=== PATIENT | female | born 1940 | race Caucasian/White ===

== ENCOUNTER 2018-07-15 06:32 | Inpatient (IN) ==
--- NOTE | 2018-06-24 18:23 | History & Physical Report ---
Date of Service June 24, 2018 Date of Surgery: 07-15-18 Assessment & Plan (1) Primary localized osteoarthritis of right knee: All risks and benefits of the procedure have been discussed, at this point in time Niya has failed conservative measures and would like to proceed with a Right total knee replacement to be performed by Dr Grant at [facility]. Plan on discharge will be home with home health physical therapy. DVT prophalaxis with TEDs, SCDs and will also place on aspirin 81 mg p.o. b.i.d. for a month postop. Patient will have follow up appointment in our office two weeks post op for staple removal and re-evaluation. Patient otherwise has no other questions or concerns. History of Present Illness Chief Complaint: right knee pain Primary Care Provider: Cuate Vitale Ms Webb is a 77 year old female who complains of right knee pain, presents for pre-op evaluation prior to a right total knee replacement on 07-15-18 at [facility]. She presents with pain, crepitus and decreased rom on the right side. She states that the symptoms have been chronic non-traumatic. The symptoms occur constantly with intermittent worsening. Currently the patient states that the symptoms are moderate. The pain is described as aching and throbbing. The symptoms are aggravated by ascending stairs, first steps while awake, daily activities, descending stairs and walking. Niya states that the symptoms are relieved by no specific activity. In addition to right knee pain the patient is also experiencing decreased mobility, joint pain, limping and loss of motion. Patient has had previous corticosteroid injection with little to no relief. She has also used a brace in the past. at this point, she has failed conservative measures and would like to proceed with a Right total knee replacement. Allergies Allergy/AdvReac Type Severity Reaction Status Date / Time No Known Allergies Allergy Verified 06/15/18 10:22 Home Medications Home Medications Medication Instructions Recorded Confirmed Type adalimumab [Humira] 1 dose SUBCUT UD 06/15/18 06/15/18 History calcium carbonate-vitamin D3 2 tab PO QAM 06/15/18 06/15/18 History [Caltrate 600 + D] cyanocobalamin (vitamin B-12) 1,000 mcg PO QAM 06/15/18 06/15/18 History [Vitamin B-12] folic acid 1 mg PO QAM 06/15/18 06/15/18 History meclizine 12.5 mg PO TID PRN 06/15/18 06/15/18 History raloxifene [Evista] 60 mg PO QAM 06/15/18 06/15/18 History Past Med/Surg History Medical History History of colon cancer 2013 Osteoarthritis Vertigo MECLIZINE PRN Surgical History History of bowel resection 2013 History of section X4 History of cholecystectomy History of colonoscopy History of herniorrhaphy History of surgery TOE PROCEDURE Family History Father Hypertension Stroke Social History Current Living Situation: Spouse Other Information That Helps Us Care for You: No Feels Safe at Home: Yes Safety Concerns: Feels Safe At This Time Smoking Status: Never smoker Do You Dip or Chew Tobacco: No Second Hand Exposure: No Tobacco Cessation Education Requested by Patient: No Hx Alcohol Use: No Hx Substance Use: No Beliefs That Will Affect Care: None Preferred Language: [place] Communication Ability: Effective 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 Review of Systems All systems reviewed & are unremarkable except as noted in HPI & below Constitutional: no fever, no chills and no sweats Respiratory: no cough and no dyspnea Cardiovascular: no chest pain, no dyspnea and no orthopnea Gastrointestinal: no abdominal pain, no nausea and no vomiting Integumentary: no rash and no lesions Physical Exam 2 Vital Signs (Past 24 Hours): Ht: 5ft 2 inches Wt: 71.7kg BP: 130/78 Pulse: 68 Resp: 16 Constitutional: WD/WN, vitals as above no acute distress Respiratory: normal respiratory effort, lungs clear to auscultation no respiratory distress and does not use accessory muscles Cardiovascular: RRR, no murmur, no edema Gastrointestinal (Abdomen): normal bowel sounds, soft, nontender, no hepatosplenomegaly Musculoskeletal: Right Knee Exam: She ambulates with a limp, overall neutral alignment, there is no erythema, warmth or atrophy, +1 Effusion, diffuse tenderness to the knee, greatest over her anterior knee joint and lateral compartment. negative patellar Apprehension , mild Crepitation with motion, Jass's Negative, flexion circumduction test is positive, Posterior drawer- Negative, Anterior drawer Negative, Valgus stress Negative, Varus stress Negative, there is no extensor lag noted, Pain with Active range of motion. Range of motion 0/3/115. No pain with active/passive ROM of ankle. Lower Extremity Strength normal. Lower Extremity Neuro-vascular is normal Skin: no rashes, warm and dry Results & Data Diagnostic Findings Right knee x-ray: dated 06-09-18 confirm degenerative changes to her right knee, overall leg length demonstrates valgus alignment. findings consistent with joint space narrowing and osteophyte formation. no loose bodies noted no acute bony pathology.
--- NOTE | 2018-06-26 12:40 | Anesthesiology Consultation ---
Date of Service June 26, 2018 Assessment & Plan (1) Encounter for pre-operative examination: Plan: Patient initially seen by PCP on 07/06 for clearance. Started on amlodipine 5 mg daily for hypertension and had repeat chest x-ray. PCP clearance 07/08/2018: Chest x-ray, EKG, labs reviewed�all stable...Hypertension much better controlled with the amlodipine. Medically stable and cleared for elective right knee surgery 07/15/2018. Chart Review Chart Review: Acceptable Risk for Surgery and Patient seen in Pre Admission Testing Teaching & Discussion Instructed NPO after midnight before surgery, except medications with 15 cc of water. Medication instructions provided according to the PAT guidelines. History Surgery Operation Date: 07/15/18 07:00 Proposed Procedures p Right Total Knee Arthroplasty - Fernando Grant DO Height/Weight Height: 5 ft 2 in Weight: 72.7 kg Allergies Allergy/AdvReac Type Severity Reaction Status Date / Time No Known Allergies Allergy Verified 06/15/18 10:22 Medications Home Medications Medication Instructions Recorded Confirmed Last Taken adalimumab [Humira] 1 dose SUBCUT UD 06/15/18 06/15/18 Unknown calcium carbonate-vitamin D3 2 tab PO QAM 06/15/18 06/15/18 Unknown [Caltrate 600 + D] cyanocobalamin (vitamin B-12) 1,000 mcg PO QAM 06/15/18 06/15/18 Unknown [Vitamin B-12] folic acid 1 mg PO QAM 06/15/18 06/15/18 Unknown meclizine 12.5 mg PO TID PRN 06/15/18 06/15/18 Unknown raloxifene [Evista] 60 mg PO QAM 06/15/18 06/15/18 Unknown Past Medical History Medical History History of colon cancer 2013 Osteoarthritis Rheumatoid arthritis Vertigo MECLIZINE PRN Past Family History Family History Father Hypertension Stroke Past Surgical History Surgical History History of bowel resection 2013 History of section X4 History of cholecystectomy History of colonoscopy History of herniorrhaphy History of surgery TOE PROCEDURE Past Anesthesia History No Family Hx of Anesthesia Complications and Other History of PONV Yes (vertigo exacerbated by anesthesia) Social History Smoking Status: Never smoker Do You Dip or Chew Tobacco: No Hx Alcohol Use: No Alcohol Intake Frequency Comment: 0 Hx Substance Use: No substance use type: does not use Exercise / Class Metabolic Activity II 4-5 Yardwork/Stairs/Walk up hill (limited these days by pain, but no SOB or CP with stairs) Review of Systems Pt denies any recent chest pain, shortness of breath, palpitations, cough, fever or URI. Physical Exam Vital Signs BP: 138/78 P: 77bpm SPO2: 94% RA T: 97.4 F R: 16 ENMT Mouth: + dental restorations (crowns on front uppers); no chipped teeth and no loose teeth Thyromental Distance: > or= 3.5 Finger Breadths (3.5) Mallampati Class: II Neck + thick neck; neck extension not limited Respiratory normal respiratory effort Auscultation: lungs clear to auscultation bilaterally Cardiovascular Rate/Rhythm: regular rate and regular rhythm Heart Sounds: no murmur Vessels: no carotid bruit Extremities: no edema Testing Electrocardiogram Date: 06/26/18 Findings: + NSR @ (76) Cannot r/o inferior infarct, age undetermined. Chest X-Ray Date: 06/26/18 Atelectasis versus patchy parenchymal infiltrate left lung base. *lungs clear on exam and pt denied any respiratory symptoms. Will be seeing PCP for clearance 07/02. Cervical Spine Date: 06/26/18 FINDINGS: The cervical spine is visualized from C1 through the superior endplate of T1. There is no fracture. Less than 2 mm of anterolisthesis of C4 on C5 and C5 on C6. This remains unchanged throughout flexion and extension. Moderate facet degenerative changes throughout the cervical spine. Mild disc space narrowing at C6-C7. Prevertebral soft tissues and the atlantodens interval are intact. IMPRESSION: 1. Mild anterolisthesis of C4 on C5 and C5 on C6 which remains unchanged throughout flexion and extension. 2. The C1-C2 interval remains intact throughout flexion and extension. 3. Degenerative changes as described above. Laboratory Results 06/26/18 13:12 Blood Type AB Positive 06/26/18 13:12 Antibody Screen NEGATIVE 06/26/18 13:12 PT 11.2 Seconds (9.0-12.0) 06/26/18 13:12 INR 1.1 (0.9-1.1) 06/26/18 13:12 APTT 25.7 Seconds (21.0-31.0) 06/26/18 13:12 Hemoglobin A1c 5.5 % (4.5-5.6) 06/26/18 13:12 Urine Color Yellow 06/26/18 13:12 Urine Appearance Clear (Clear) 06/26/18 13:12 Urine pH 5.5 (4.5-7.5) 06/26/18 13:12 Ur Specific [place] 1.013 (1.000-1.030) 06/26/18 13:12 Urine Protein Negative (Negative) 06/26/18 13:12 Urine Glucose (UA) Negative (Negative) 06/26/18 13:12 Urine Ketones Trace (Negative) H 06/26/18 13:12 Urine Nitrite Negative (Negative) 06/26/18 13:12 Ur Leukocyte Esterase 1+ (Negative) H 06/26/18 13:12 Urine WBC (Auto) 10-30 /hpf (0-5) H 06/26/18 13:12 Urine RBC (Auto) 0-4 /hpf (0-4) 06/26/18 13:12 U Hyaline Cast (Auto) 1-5 /lpf (0-5) 06/26/18 13:12 U Epithel Cells (Auto) 20-30 /lpf (0-5) H 06/26/18 13:12 Urine Bacteria (Auto) Negative (Negative) 06/26/18 13:12 06/26/18 13:12 Urine Culture - Final Urine,Clean Catch Three types of organisms present, all high counts. Repeat collection recommended. No further identifications or sensitivities to follow. 06/11/2018 SODIUM: 141 POTASSIUM: 4.3 CHLORIDE: 106 CO2: 28.7 BUN: 14.9 CREATININE: 0.70 GLUCOSE: 85
--- NOTE | 2018-06-26 12:42 | PAT Medication Instructions ---
Medication Instructions Date of Service June 26, 2018 Home Medications adalimumab [Humira] 1 dose SUBCUT UD calcium carbonate-vitamin D3 2 tab PO QAM cyanocobalamin (vitamin B-12) 1,000 mcg PO QAM folic acid 1 mg PO QAM meclizine 12.5 mg PO TID PRN raloxifene [Evista] 60 mg PO QAM ASK your prescriber and surgeon adalimumab [Humira] 1 dose SUBCUT UD DO NOT take the morning of surgery calcium carbonate-vitamin D3 2 tab PO QAM cyanocobalamin (vitamin B-12) 1,000 mcg PO QAM folic acid 1 mg PO QAM raloxifene [Evista] 60 mg PO QAM Take morning of surgery With a small sip of water, OTHERWISE NOTHING TO EAT OR DRINK AFTER MIDNIGHT: meclizine 12.5 mg PO TID PRN (if needed) Take evening before surgery meclizine 12.5 mg PO TID PRN (if needed) Other Notes If you have any questions please call us at [phone] or [phone] or [phone] or [phone]
--- NOTE | 2018-06-26 13:50 | XRay Report ---
XR chest Pre-admission PA/Lat CLINICAL HISTORY: pat preoperative evaluation COMPARISON STUDY: No previous studies for comparison. FINDINGS: Small parenchymal infiltrate left lung base. Lungs otherwise appear clear. No significant c ardiac enlargement. IMPRESSION: Atelectasis versus patchy parenchymal infiltrate left lung base. The above report was generated using voice recognition software. It may contain grammatical, syntax or spelling errors. Electronically signed by: Bereket Gonzalez M.D. 06/26/2018 1:49 PM
[2018-06-26 14:08] LABS: Basophils # (auto) 0.07 K/uL (0-0.2); Basophils % (auto) 0.9 %; Eosinophils # (auto) 0.28 K/uL (0-0.5); Eosinophils % (auto) 3.4 %; Hemoglobin 15.3 g/dL (12.0-16.0); Immature Granulocytes # (auto) 0.01 K/uL (0.00-0.02); Immature Granulocytes % (auto) 0.1 %; Lymphocytes # (auto) 3.82 K/uL (1.2-3.4); Lymphocytes % (auto) 46.4 %; Mean Corpuscular Hgb Conc 33.3 g/dL (32-36); Mean Corpuscular Volume 98.1 fL (80-100); Mean Platelet Volume 9.9 fL (7.4-10.4); Monocytes # (auto) 0.79 K/uL (0.11-0.59); Monocytes % (auto) 9.6 %; Neutrophils # (auto) 3.26 K/uL (1.4-6.5); Neutrophils % (auto) 39.6 %; Platelet Count 228 K/uL (130-400); RDW Coefficient of Variation 13.4 % (11.5-14.5); Red Blood Count 4.69 M/uL (4.2-5.4); White Blood Count 8.23 K/uL (4.8-10.8)
[2018-06-26 14:11] LABS: Estimated Average Glucose 111 mg/dl; Hemoglobin A1C 5.5 % (4.5-5.6)
[2018-06-26 14:19] LABS: INR 1.1 (0.9-1.1); Partial Thromboplastin Time 25.7 Seconds (21.0-31.0); Prothrombin Time 11.2 Seconds (9.0-12.0)
--- NOTE | 2018-06-26 14:22 | XRay Report ---
CERVICAL SPINE 3 VIEWS, flexion and extension HISTORY: Preop. Rheumatoid arthritis. COMPARISON: None. FINDINGS: The cervical spine is visualized from C1 through the superior endplate of T1. There is no f racture. Less than 2 mm of anterolisthesis of C4 on C5 and C5 on C6. This remains unchanged througho ut flexion and extension. Moderate facet degenerative changes throughout the cervical spine. Mild dis c space narrowing at C6-C7. Prevertebral soft tissues and the atlantodens interval are intact. IMPRESSION: 1. Mild anterolisthesis of C4 on C5 and C5 on C6 which remains unchanged throughout flexion and exten rosa. 2. The C1-C2 interval remains intact throughout flexion and extension. 3. Degenerative changes as described above. Electronically signed by: Ap Joshi M.D. 06/26/2018 2:21 PM
[2018-06-26 14:45] LABS: Appearance Urine Clear (Clear); Bacteria Urine Automated Negative (Negative); Bilirubin Urine Negative (Negative); Blood Urine Negative (Negative); Color Urine Yellow; Epithelial Cell Urine Auto 20-30 /lpf (0-5); Glucose Urine UA Negative (Negative); Ketones Urine Trace (Negative); Leukocyte Esterase Urine 1+ (Negative); Nitrite Urine Negative (Negative); Protein Urine Negative (Negative); RBC Urine Automated 0-4 /hpf (0-4); Specific Gravity Urine 1.013 (1.000-1.030); Urobilinogen Urine Negative (Negative); pH Urine 5.5 (4.5-7.5)
[~2018-07-15 06:32] MED LIST: ACETAMINOPHEN 500 MG TAB PO SCH; CEFAZOLIN 1000MG 1,000 MG/7.5 ML SYR IV SCH; CeleBREX 200 MG CAP PO SCH; FAMOTIDINE 20 MG TAB PO SCH; GABAPENTIN 300 MG PO SCH; LR 500ML BOLUS, THEN 15ML/HR IV SCH; METOCLOPRAMIDE HCL 10 MG TABLET PO SCH; dexAMETHasone 4 MG TAB PO SCH
[2018-07-15] MEDS ORDERED: ROPIVACAINE 0.5% 5 MG/ML 30 ML VIAL ONE (06:35)
[2018-07-15] MEDS ORDERED: BUPIVACAINE 0.5 % 5 MG/1 ML PF 10ML VIAL ONE (06:35)
[2018-07-15] MEDS ORDERED: POVIDONE-IODINE OP SOLN 30 ML BTL ONE (07:02)
[2018-07-15] MEDS ORDERED: BACITRACIN INJ 50,000 UNIT VIAL ONE (07:02)
[2018-07-15] MEDS ORDERED: ORTHO JOINT ANESTHETIC ONE (07:02)
--- NOTE | 2018-07-15 07:02 | History & Physical Bridge Note ---
Date of Service July 15, 2018 History & Physical Bridge Note I have examined the patient, reviewed the History & Physical and in the interval since the performance of the History & Physical I have noted the following changes of clinical significance: no changes noted
[2018-07-15] MEDS ORDERED: MIDAZOLAM HCL 1 MG/ML 2ML VIAL ONE (07:11)
[2018-07-15] MEDS ORDERED: fentaNYL citrate 100 MCG/2 ML VIAL ONE (07:12)
[2018-07-15] MEDS ORDERED: LIDOCAINE HCL 2% 2 ML VIAL/AMP(20MG/ML) INFIL ONE (07:13)
[2018-07-15] MEDS ORDERED: ONDANSETRON INJ 2 MG/ML 2 ML VIAL ONE (07:15)
[2018-07-15] MEDS ORDERED: ONDANSETRON INJ 2 MG/ML 2 ML VIAL IV PRN ×2 (07:58→12:26)
[2018-07-15] MEDS ORDERED: fentaNYL citrate 100 MCG/2 ML VIAL IV PRN (07:58)
[2018-07-15] MEDS ORDERED: PHENYLEPHRINE 100MCG/ML 5ML SYR IV PRN (07:58)
[2018-07-15] MEDS ORDERED: ATROPINE SULFATE 0.1 MG/ML 10ML SYR IV PRN (07:58)
[2018-07-15] MEDS ORDERED: ePHEDrine sulfate 50 MG/ML AMP IV PRN (07:58)
[2018-07-15] MEDS ORDERED: HYDROmorphone INJ 1 MG/ML SYRINGE IV PRN (07:58)
[2018-07-15] MEDS ORDERED: ROPIVACAINE 0.5% HCL/PF 150 MG, BUPIVACAINE 0.5% MPF 30 ML, EPINEPHrine 30MG/30ML (OR U... INFIL SCH (08:15)
[2018-07-15] MEDS ORDERED: TRANEXAMIC ACID 1,000 MG in 0.9 % SODIUM CHLORIDE 100 ML IV ONE (09:45)
--- NOTE | 2018-07-15 10:11 | Operative Report ---
Post Operative Report Pre & Post Diagnosis Operation Date: 07/15/18 09:00 Pre-Op Diagnosis: Right Knee Osteoarthritis Post-Op Diagnosis: Right Knee Osteoarthritis Procedure Operation Date: 07/15/18 09:00 Actual Procedures p Right Total Knee Arthroplasty(Right) utilizing journey to patient matched total knee arthroplasty size 4 femur 3 tibia 10 polyethylene 29 oval patella- T kevin Grant DO Surgeon Fernando Grant DO Low Pressure Boiler Operator Bereket [place] Estimated Blood Loss 5 Findings Consistent with Post-Op Diagnosis Patient presents with severe end-stage tricompartmental degenerative joint disease valgus alignment of 15 degrees to 15 degree flexion contracture with market end-stage DJD bone loss subchondral sclerosis osteophyte formation moderate to large effusion Specimens Bone and cartilage Drains Medium bore Hemovac Complications none Disposition Accompanied Patient To Recovery: No Disposition: Recovery Room Indications Patient presents with a severe end-stage DJD about the right knee subchondral sclerosis osteophytes bone to bone eburnated bone with subchondral osteophytes subchondral cystic changes marginal osteophytes valgus alignment of 15 degrees and a 15 degree flexion contracture no response to conservative therapy and physical therapy anti-inflammatories relative rest activity modification corticosteroid injections Visco supplementation bracing and relative rest she presents for right total knee arthroplasty Description of Procedure After proper prepping and draping of the Right lower extremity anterior midline incision was made over the region of the extensor extensor mechanism after meticulous hemostasis was obtained and maintained in subcutaneous tissues a medial parapatellar incision was made The patella was subluxed lateralward the medial lateral gutter were cleaned from any hypertrophic synovitis and scar tissue of the distal femoral block was placed and the distal femoral osteotomy cut was made subsequently the chamfers anterior and posterior osteotomy cuts were made utilizing the 4-in-1 block the tibia was subsequently subluxed anteriorward medial and ateral meniscal remnants were excised in their entirety remnants of the anterior and posterior cruciate ligaments were excised in their entirety excellent exposure of the proximal tibia was obtained the tibial osteotomy guide was placed on the proximal tibial osteotomy cut was made once again the knee was irrigated with copious amounts of sterile saline solution the patella was subsequently everted lateralward thickened scar tissue around the patella was removed the patella was subsequently cut utilizing a freehand technique and was drilled prepared for final preparation and placement of patella socially flexion-extension gaps were checked and the equal and symmetric trials were placed to the appropriate femoral and tibial trials with poly-spacer being placed for equal flexion and extension gaps and full range of motion in cluding extension to 0 and flexion to 140� the trial components after having been taken to recovery range of motion was subsequently removed meticulous hemostasis was obtained and maintained subsequently a knee block injection of joint cocktail including ropivacaine 0.5% 150 mg. Bupivacaine 0.5% epinephrine 1-200,030 mL's toradol 30 mg dexamethasone 4 mg ketamine 10 mg clonidine 100 micrograms normal saline solution 30 mg was infiltrated into the soft tissues of the posterior knee medial lateral gutters and periosteal synovium special attention was paid to protect neurovascular structures at all times subsequently trial components having been removed the knee was irrigated with sterile saline solution. debris was removed the proximal tibia was subsequently prepared and was made ready for the placement of the tibial component tibial component was also cemented and tamped into position the femoral component was subsequently placed and cemented in the position the patellar component was subsequently cemented in position because hemostasis once again obtained and maintained wound having been thoroughly irrigated with debridement and debridement lavage was performed as well as a medial parapatellar incision closed with #1 Vicryl in interrupted fashion subcutaneous was closed with #2 Vicryl skin was closed with skin clips. PA-C was necessary for prepping and drapping as well as wound closure of deep fascia Sub cutaneous tissue and skin and was necessary for the case. A sterile compressive dressing was placed patient was taken to recovery in stable condition of report dictated by Rudy I attest to the content of the Intraoperative Record and any orders documented therein. Any exceptions are noted below. I attest to the content of the Intraoperative Record and any orders documented therein. Any exceptions are noted below.
--- NOTE | 2018-07-15 11:39 | Anesthesiology Progress Note ---
Date of Service July 15, 2018 Anesthesia Post Procedure Vital Signs Vital Signs: Temp Pulse Pulse Resp BP Pulse Ox 07/15/18 11:35 63 14 115/54 L 96 07/15/18 11:25 74 15 125/70 93 07/15/18 11:15 71 16 110/55 L 97 07/15/18 11:05 73 15 122/73 98 07/15/18 10:55 36.3 C L 77 14 182/55 H 98 07/15/18 07:09 36.4 C L 78 18 194/94 H 97 Notes Mental Status: alert / awake / arousable Patient Amnestic to Procedure: Yes Nausea / Vomiting: adequately controlled Pain: adequately controlled Airway Patency, RR, SpO2: stable & adequate BP & HR: stable & adequate Neuraxial Anesthesia: was administered and sensory block is resolving Anesthetic Complications: no major complications apparent
[2018-07-15] MEDS ORDERED: MECLIZINE 12.5 MG TAB PO PRN (12:26)
[2018-07-15] MEDS ORDERED: ALUMINUM/MAGNESIUM SUSP 30 ML UDC PO PRN (12:26)
[2018-07-15] MEDS ORDERED: MAGNESIUM HYDROXIDE SUSP 30 ML UDC PO PRN (12:26)
[2018-07-15] MEDS ORDERED: METOCLOPRAMIDE HCL INJ 5 MG/ML 2 ML VIAL IV PRN (12:26)
[2018-07-15] MEDS ORDERED: NALOXONE HCL 0.4 MG/1 ML VIAL/CARP IV PRN (12:26)
[2018-07-15] MEDS ORDERED: BISACODYL 10 MG SUPP PR PRN (12:26)
[2018-07-15] MEDS ORDERED: HYDROmorphone INJ 0.5 MG/0.5 ML SYR IV PRN (12:26)
--- NOTE | 2018-07-15 12:52 | XRay Report ---
XR knee RT 2V routine CLINICAL HISTORY: Surgical Post Op COMPARISON: None. DISCUSSION: Anatomic alignment post total right knee arthroplasty. Good contact between prosthetic an d underlying bone. Expected soft tissue postoperative change. IMPRESSION: Anatomic alignment post total right knee arthroplasty. The above report was generated using voice recognition software. It may contain grammatical, syntax or spelling errors. Electronically signed by: Bereket Gonzalez M.D. 07/15/2018 12:51 PM
[2018-07-15] MEDS: KETOROLAC TROMETHAMINE 15 MG/ML VIAL IV SCH ×3 (15:06→23:40)
[2018-07-15] MEDS: ACETAMINOPHEN 500 MG TAB PO SCH ×2 (15:07→21:14)
[2018-07-15] MEDS: CLINDAMYCIN 600 MG in DEXTROSE 5% 50 ML IV SCH ×2 (15:51→23:40)
[2018-07-15] MEDS: SODIUM CHLORIDE 0.9% 1000ML 1,000 ML IV SCH (19:09)
[2018-07-15] MEDS: SENNA 8.6 MG TAB PO SCH (21:14)
[2018-07-15] MEDS: DOCUSATE SODIUM 100 MG CAP PO SCH (21:14)
[2018-07-15] MEDS: ASPIRIN 81 MG ECTAB PO SCH (21:15)
[2018-07-16] MEDS ORDERED: Nursing to Pharmacy Communication ONE (06:00)
[2018-07-16] MEDS: SODIUM CHLORIDE 0.9% 1000ML 1,000 ML IV SCH (06:01)
[2018-07-16 06:03] LABS: Hematocrit (blood only) 37.9 % (37-47); Hemoglobin 13.2 g/dL (12.0-16.0); Mean Corpuscular Hgb Conc 34.8 g/dL (32-36); Mean Corpuscular Volume 97.2 fL (80-100); Mean Platelet Volume 9.9 fL (7.4-10.4); Platelet Count 186 K/uL (130-400); RDW Coefficient of Variation 12.7 % (11.5-14.5); RDW Standard Deviation 44.4 fL (36.4-46.3)
[2018-07-16] MEDS: KETOROLAC TROMETHAMINE 15 MG/ML VIAL IV SCH (06:32)
[2018-07-16] MEDS: ACETAMINOPHEN 500 MG TAB PO SCH ×3 (06:32→22:28)
[2018-07-16 06:42] LABS: BUN Creatinine Ratio 27.2 (10-20); Calcium 8.3 mg/dl (8.5-10.1); Creatinine Clr Calc Pharmacy 56.3 ml/min; Est GFR (African American) 87.1; Est GFR (Non-African American) 75.1; Potassium 4.3 mmol/L (3.5-5.1)
--- NOTE | 2018-07-16 06:57 | Orthopedic Progress Note ---
Date of Service July 16, 2018 Assessment & Plan (1) Status post total knee replacement, right: POD #1 s/p Right TKA pt/ot dvt proph with SANDEE/SCD/ASA plan for d/c home with home health PT when stable, likely after PT Friday. Subjective POD #1 s/p Right TKA denies CP/SOB denies fever/chills denies LH/dizzy Physical Exam Vital Signs (Past 24 Hours): Last Vital Signs Temp 36.5 C 07/16/18 03:15 Pulse 63 07/16/18 03:15 Resp 14 07/16/18 03:15 BP 119/71 07/16/18 03:15 Pulse Ox 96 07/16/18 03:15 Constitutional: WD/WN, vitals as above no acute distress Musculoskeletal: Right lower leg: NVDI, calf SNT, negative jagdish sign. DP palpable, able to wiggle toes/ankle movement without difficulty. VAMSI dressing clean dry and intact. Results & Data Laboratory Results Laboratory Results WBC 23.90 K/uL (4.8-10.8) H 07/16/18 05:25 RBC 3.90 M/uL (4.2-5.4) L 07/16/18 05:25 Hgb 13.2 g/dL (12.0-16.0) 07/16/18 05:25 Hct 37.9 % (37-47) 07/16/18 05:25 MCV 97.2 fL (80-100) 07/16/18 05:25 MCH 33.8 pg (25-34) 07/16/18 05:25 MCHC 34.8 g/dL (32-36) 07/16/18 05:25 RDW Std Deviation 44.4 fL (36.4-46.3) 07/16/18 05:25 RDW Coeff of Rajni 12.7 % (11.5-14.5) 07/16/18 05:25 Plt Count 186 K/uL (130-400) 07/16/18 05:25 MPV 9.9 fL (7.4-10.4) 07/16/18 05:25 Immature Gran % (Auto) 0.1 % 06/26/18 13:12 Neut % (Auto) 39.6 % 06/26/18 13:12 Lymph % (Auto) 46.4 % 06/26/18 13:12 [place] % (Auto) 9.6 % 06/26/18 13:12 Eos % (Auto) 3.4 % 06/26/18 13:12 Baso % (Auto) 0.9 % 06/26/18 13:12 Immature Gran # (Auto) 0.01 K/uL (0.00-0.02) 06/26/18 13:12 Neut # (Auto) 3.26 K/uL (1.4-6.5) 06/26/18 13:12 Lymph # (Auto) 3.82 K/uL (1.2-3.4) H 06/26/18 13:12 [place] # (Auto) 0.79 K/uL (0.11-0.59) H 06/26/18 13:12 Eos # (Auto) 0.28 K/uL (0-0.5) 06/26/18 13:12 Baso # (Auto) 0.07 K/uL (0-0.2) 06/26/18 13:12 PT 11.2 Seconds (9.0-12.0) 06/26/18 13:12 INR 1.1 (0.9-1.1) 06/26/18 13:12 APTT 25.7 Seconds (21.0-31.0) 06/26/18 13:12 PTT Ratio 1.0 06/26/18 13:12 Sodium 141 mmol/L (136-145) 07/16/18 05:25 Potassium 4.3 mmol/L (3.5-5.1) 07/16/18 05:25 Chloride 110 mmol/L (98-107) H 07/16/18 05:25 Carbon Dioxide 26 mmol/L (21-32) 07/16/18 05:25 Anion Gap 5.0 (3-11) 07/16/18 05:25 BUN 21 mg/dl (7-18) H 07/16/18 05:25 Creatinine 0.76 mg/dl (0.6-1.2) 07/16/18 05:25 Est Cr Clr Drug Dosing 56.3 ml/min 07/16/18 05:25 Est GFR ( Amer) 87.1 07/16/18 05:25 Est GFR (Non-Af Amer) 75.1 07/16/18 05:25 BUN/Creatinine Ratio 27.2 (10-20) H 07/16/18 05:25 Glucose 127 mg/dl (70-99) H 07/16/18 05:25 Estimat Average Glucose 111 mg/dl 06/26/18 13:12 Hemoglobin A1c 5.5 % (4.5-5.6) 06/26/18 13:12 Calcium 8.3 mg/dl (8.5-10.1) L 07/16/18 05:25 Albumin 3.6 gm/dl (3.4-5.0) 06/26/18 13:12 Urine Color Yellow 06/26/18 13:12 Urine Appearance Clear (Clear) 06/26/18 13:12 Urine pH 5.5 (4.5-7.5) 06/26/18 13:12 Ur Specific [place] 1.013 (1.000-1.030) 06/26/18 13:12 Urine Protein Negative (Negative) 06/26/18 13:12 Urine Glucose (UA) Negative (Negative) 06/26/18 13:12 Urine Ketones Trace (Negative) H 06/26/18 13:12 Urine Blood Negative (Negative) 06/26/18 13:12 Urine Nitrite Negative (Negative) 06/26/18 13:12 Urine Bilirubin Negative (Negative) 06/26/18 13:12 Urine Urobilinogen Negative (Negative) 06/26/18 13:12 Ur Leukocyte Esterase 1+ (Negative) H 06/26/18 13:12 Urine WBC (Auto) 10-30 /hpf (0-5) H 06/26/18 13:12 Urine RBC (Auto) 0-4 /hpf (0-4) 06/26/18 13:12 U Hyaline Cast (Auto) 1-5 /lpf (0-5) 06/26/18 13:12 U Epithel Cells (Auto) 20-30 /lpf (0-5) H 06/26/18 13:12 Urine Bacteria (Auto) Negative (Negative) 06/26/18 13:12 Blood Type AB Positive 06/26/18 13:12 Antibody Screen NEGATIVE 06/26/18 13:12 Diagnostic Findings XR knee RT 2V routine CLINICAL HISTORY: Surgical Post Op COMPARISON: None. DISCUSSION: Anatomic alignment post total right knee arthroplasty. Good contact between prosthetic and underlying bone. Expected soft tissue postoperative change. IMPRESSION: Anatomic alignment post total right knee arthroplasty.
[2018-07-16] MEDS: FOLIC ACID 1 MG TAB PO SCH (08:35)
[2018-07-16] MEDS: CYANOCOBALAMIN 500 MCG TABLET (VITAMIN B-12) PO SCH (08:35)
[2018-07-16] MEDS: MULTIVITAMIN TAB PO SCH ×2 (08:35→09:22)
[2018-07-16] MEDS: CALCIUM 600MG + VIT D 400 IU TAB PO SCH (08:35)
[2018-07-16] MEDS: ASPIRIN 81 MG ECTAB PO SCH ×2 (08:36→20:07)
[2018-07-16] MEDS: DOCUSATE SODIUM 100 MG CAP PO SCH ×2 (08:36→20:05)
[2018-07-16] MEDS ORDERED: NON-FORMULARY MEDICATION (Cyanocobalamin (Vitamin B-12) [Vitamin B-12] 1,000 MCG) PO SCH (09:00)
[2018-07-16] MEDS ORDERED: CALCIUM CARBONATE VITAMIN D3 PO SCH (09:00)
--- NOTE | 2018-07-16 09:18 | Anesthesiology Progress Note ---
Date of Service July 16, 2018 Anesthesia Post Procedure Vital Signs Vital Signs: Temp Pulse Pulse Resp BP BP Pulse Ox 07/16/18 07:17 36.6 C 64 14 115/60 93 07/16/18 03:15 36.5 C 63 14 119/71 96 07/15/18 23:10 36.3 C L 62 14 117/64 94 07/15/18 15:13 36.7 C 62 16 115/71 95 07/15/18 13:58 36.3 C L 64 14 102/63 96 07/15/18 13:03 36.4 C L 65 15 109/65 96 07/15/18 12:30 68 18 116/72 95 07/15/18 12:00 36.5 C 70 16 120/69 93 07/15/18 11:45 36.8 C 67 18 115/59 L 95 07/15/18 11:35 63 14 115/54 L 96 07/15/18 11:25 74 15 125/70 93 07/15/18 11:15 71 16 110/55 L 97 07/15/18 11:05 73 15 122/73 98 07/15/18 10:55 36.3 C L 77 14 182/55 H 98 Pain Intensity Right Knee: Pain Intensity: 0 Notes Mental Status: alert / awake / arousable and participated in evaluation Patient Amnestic to Procedure: Yes Nausea / Vomiting: adequately controlled Pain: adequately controlled Airway Patency, RR, SpO2: stable & adequate Hydration State: stable & adequate Neuraxial Anesthesia: was administered and sensory block is resolving Anesthetic Complications: no major complications apparent and Pt Satisfied with anesthetic care
[2018-07-16] MEDS: CeleBREX 200 MG CAP PO SCH ×2 (09:22→20:07)
[2018-07-16] MEDS: OXYCODONE HCL IR 5 MG TAB (IMMEDIATE RELEASE) PO PRN (18:01)
[2018-07-16] MEDS: SENNA 8.6 MG TAB PO SCH (20:05)
[2018-07-17] MEDS: ACETAMINOPHEN 500 MG TAB PO SCH (06:24)
--- NOTE | 2018-07-17 07:02 | Orthopedic Progress Note ---
Date of Service July 17, 2018 Assessment & Plan (1) Status post total knee replacement, right: POD #2 s/p Right TKA pt/ot dvt proph with SANDEE/SCD/ASA plan for d/c home with home health PT , after PT today Subjective POD #2 s/p Right TKA denies CP/SOB denies fever/chills denies LH/dizzy Physical Exam Vital Signs (Past 24 Hours): Last Vital Signs Temp 36.6 C 07/17/18 06:58 Pulse 66 07/17/18 06:58 Resp 18 07/17/18 06:58 BP 167/74 H 07/17/18 06:58 Pulse Ox 96 07/17/18 06:58 Constitutional: WD/WN, vitals as above no acute distress Musculoskeletal: Right leg: NVDI, calf SNT, negative jagdish sign. DP palpable, able to wiggle toes/ankle movement without difficulty. ALANNA intact. expected post-operative bruising noted.
--- NOTE | 2018-07-17 07:04 | Discharge Summary ---
Date of Service Date of Discharge: July 17, 2018 Date of Admission: 07/15/18 Admission HPI Per Admitting Provider Ms Webb is a 77 year old female who complains of right knee pain, presents for pre-op evaluation prior to a right total knee replacement on 07-15-18 at [facility]. She presents with pain, crepitus and decreased rom on the right side. She states that the symptoms have been chronic non-traumatic. The symptoms occur constantly with intermittent worsening. Currently the patient states that the symptoms are moderate. The pain is described as aching and throbbing. The symptoms are aggravated by ascending stairs, first steps while awake, daily activities, descending stairs and walking. Niya states that the symptoms are relieved by no specific activity. In addition to right knee pain the patient is also experiencing decreased mobility, joint pain, limping and loss of motion. Patient has had previous corticosteroid injection with little to no relief. She has also used a brace in the past. at this point, she has failed conservative measures and would like to proceed with a Right total knee replacement. Principal Diagnosis right knee osteoarthritis Discharge Exam Constitutional WD/WN, vitals as above + well hydrated; no acute distress Musculoskeletal Right leg: NVDI, calf SNT, negative jagdish sign. DP palpable, able to wiggle toes/ankle movement without difficulty. ALANNA intact. expected post-operative bruising noted. Discharge Data Allergies Allergy/AdvReac Type Severity Reaction Status Date / Time No Known Allergies Allergy Verified 07/15/18 07:05 Consultations 07/15/18 12:26 Consult Case Management - Discharge Planning Routine Procedures Performed Operation Date: 07/15/18 09:00 Actual Procedures p Right Total Knee Arthroplasty(Right) - Fernando Grant DO Ordered Studies 07/15/18 05:00 US - OR guided needle placemen Routine Hospital Course (1) Status post total knee replacement, right: POD #2 s/p Right TKA pt/ot dvt proph with SANDEE/SCD/ASA plan for d/c home with home health PT , after PT today. Patient was a same day admission after undergoing a successful right TKA. She tolerated the procedure well. Post-operatively, her activity was progressed and well tolerated. Please refer to daily progress notes and PT notes for complete details. After exam on 07/17/18, patient felt to be stable for discharge home with HHPT. Patient will f/u in the office in 2 weeks for further evaluation including x-rays and incision check, sooner if having any issues or concerns. Below are pertinent labs/studies during their hospital stay: Laboratory Results WBC 23.90 K/uL (4.8-10.8) H 07/16/18 05:25 RBC 3.90 M/uL (4.2-5.4) L 07/16/18 05:25 Hgb 13.2 g/dL (12.0-16.0) 07/16/18 05:25 Hct 37.9 % (37-47) 07/16/18 05:25 MCV 97.2 fL (80-100) 07/16/18 05:25 MCH 33.8 pg (25-34) 07/16/18 05:25 MCHC 34.8 g/dL (32-36) 07/16/18 05:25 RDW Std Deviation 44.4 fL (36.4-46.3) 07/16/18 05:25 RDW Coeff of Rajni 12.7 % (11.5-14.5) 07/16/18 05:25 Plt Count 186 K/uL (130-400) 07/16/18 05:25 MPV 9.9 fL (7.4-10.4) 07/16/18 05:25 Immature Gran % (Auto) 0.1 % 06/26/18 13:12 Neut % (Auto) 39.6 % 06/26/18 13:12 Lymph % (Auto) 46.4 % 06/26/18 13:12 [place] % (Auto) 9.6 % 06/26/18 13:12 Eos % (Auto) 3.4 % 06/26/18 13:12 Baso % (Auto) 0.9 % 06/26/18 13:12 Immature Gran # (Auto) 0.01 K/uL (0.00-0.02) 06/26/18 13:12 Neut # (Auto) 3.26 K/uL (1.4-6.5) 06/26/18 13:12 Lymph # (Auto) 3.82 K/uL (1.2-3.4) H 06/26/18 13:12 [place] # (Auto) 0.79 K/uL (0.11-0.59) H 06/26/18 13:12 Eos # (Auto) 0.28 K/uL (0-0.5) 06/26/18 13:12 Baso # (Auto) 0.07 K/uL (0-0.2) 06/26/18 13:12 PT 11.2 Seconds (9.0-12.0) 06/26/18 13:12 INR 1.1 (0.9-1.1) 06/26/18 13:12 APTT 25.7 Seconds (21.0-31.0) 06/26/18 13:12 PTT Ratio 1.0 06/26/18 13:12 Sodium 141 mmol/L (136-145) 07/16/18 05:25 Potassium 4.3 mmol/L (3.5-5.1) 07/16/18 05:25 Chloride 110 mmol/L (98-107) H 07/16/18 05:25 Carbon Dioxide 26 mmol/L (21-32) 07/16/18 05:25 Anion Gap 5.0 (3-11) 07/16/18 05:25 BUN 21 mg/dl (7-18) H 07/16/18 05:25 Creatinine 0.76 mg/dl (0.6-1.2) 07/16/18 05:25 Est Cr Clr Drug Dosing 56.3 ml/min 07/16/18 05:25 Est GFR ( Amer) 87.1 07/16/18 05:25 Est GFR (Non-Af Amer) 75.1 07/16/18 05:25 BUN/Creatinine Ratio 27.2 (10-20) H 07/16/18 05:25 Glucose 127 mg/dl (70-99) H 07/16/18 05:25 Estimat Average Glucose 111 mg/dl 06/26/18 13:12 Hemoglobin A1c 5.5 % (4.5-5.6) 06/26/18 13:12 Calcium 8.3 mg/dl (8.5-10.1) L 07/16/18 05:25 Albumin 3.6 gm/dl (3.4-5.0) 06/26/18 13:12 Urine Color Yellow 06/26/18 13:12 Urine Appearance Clear (Clear) 06/26/18 13:12 Urine pH 5.5 (4.5-7.5) 06/26/18 13:12 Ur Specific [place] 1.013 (1.000-1.030) 06/26/18 13:12 Urine Protein Negative (Negative) 06/26/18 13:12 Urine Glucose (UA) Negative (Negative) 06/26/18 13:12 Urine Ketones Trace (Negative) H 06/26/18 13:12 Urine Blood Negative (Negative) 06/26/18 13:12 Urine Nitrite Negative (Negative) 06/26/18 13:12 Urine Bilirubin Negative (Negative) 06/26/18 13:12 Urine Urobilinogen Negative (Negative) 06/26/18 13:12 Ur Leukocyte Esterase 1+ (Negative) H 06/26/18 13:12 Urine WBC (Auto) 10-30 /hpf (0-5) H 06/26/18 13:12 Urine RBC (Auto) 0-4 /hpf (0-4) 06/26/18 13:12 U Hyaline Cast (Auto) 1-5 /lpf (0-5) 06/26/18 13:12 U Epithel Cells (Auto) 20-30 /lpf (0-5) H 06/26/18 13:12 Urine Bacteria (Auto) Negative (Negative) 06/26/18 13:12 Blood Type AB Positive 06/26/18 13:12 Antibody Screen NEGATIVE 06/26/18 13:12 Total Time Total Time Spent Total Time Spent (In Minutes): 20 Total Time Includes: Examination of the Patient, Discharge Planning and Medication Reconciliation Discharge Plan Discharge Items Patient Disposition: Home - Home Health Services Reason For Visit: Right Knee Osteoarthritis Discharge Diagnosis: right total knee replacement Condition: Good Discharge Goals: Decrease discomfort, Improve function and Increase independence Activity: Per 'Additional Instructions' section Lifting: Wait until after follow-up appointment Driving/Machine Use Comment: no driving until cleared by MD Weightbearing: Right weightbearing Weightbearing Comment: WBAT with walker Non-emergency contact: Primary Care Provider and Surgeon Call non-emergency contact if: you have any medication questions, your temperature is above 101.5, your wound has increased redness, your wound has increased drainage and your wound pain has increased Follow-up/Referrals: Cuate Vitale DO [Primary Care Provider] - Diet: Regular Addtl Provider Instructions: ACTIVITY RECOMMENDATIONS: SELF CARE INSTRUCTIONS AFTER TOTAL KNEE REPLACEMENT A. You may need to continue a physical therapy program after discharge from the hospital. There are several options available to you. Your doctor will assist you in selecting the best one for you. 1. An out-patient facility 2 to 3 times a week for therapy or home therapy. 2. Continue working on all exercises taught to you in the hospital. Your goals should be to increase bending of your knee to 90 degrees and beyond and to fully straighten your knee. B. You may progress at your own pace from walking with a walker or crutches to a cane; then to no assistive devices. C. Make walking a part of your daily routine. Be up as much as comfortable with rest periods throughout the day. Rest with leg elevation is very important. Use the ice wrap frequently for the first 3-4 weeks. D. There are no restrictions on activities. You may ride in a car, shop, participate in dental laboratory manager and all social activities. E. Wear the long elastic stockings (SANDEE hose) 20 hours a day for 2 weeks after surgery. They can be removed several times a day for laundering and for a bath. F. You may shower, no tub baths until cleared by your doctor. SPECIAL CARE INSTRUCTIONS: VERY IMPORTANT TO READ AND REVIEW A. There are a few signs you need to watch for after you are home. Call [facility] if you notice any of the followin. Increased severe knee pain. Some pain is expected especially when you exercise. 2. Increased swelling in your leg or knee; pain or swelling of the calf muscle in either lower leg. 3. Any fluid drainage from the incision. 4. Shortness of breath or chest pain. B. Please call [facility] at if you have any concerns or questions about your operation or recovery. The doctor or his nurse will return your call promptly. C. You must take antibiotics before dental work, bladder, bowel or other surgery. Your doctor will provide you with a permanent care to carry describing this precaution. IMPORTANT: * REMEMBER TO TAKE ASPIRIN, 81 MG, TWICE DAILY FOR 4 WEEKS UNLESS OTHERWISE DIRECTED. THIS IS YOUR BLOOD THINNER. * HIGH RISK PATIENTS MAY BE PRESCRIBED A STRONGER BLOOD THINNER. THIS WILL BE PROVIDED AT DISCHARGE. * CALL IF INCREASED PAIN, REDNESS, DRAINAGE OR FEVER GREATER THAT 101. * WEAR SANDEE HOSE 20 HOURS PER DAY FOR 2 WEEKS. * ALANNA Dressing- This is a large suction dressing covering your incision. This will help pull any excess drainage from the wound and allow your incision to heal properly. You may shower with this if you can keep the unit outside of the shower. If any bleeding or leakage is noted please call your doctor's office. This will remain on your incision for 7 days and then should be removed. This can be done yourself or by the home nursing staff if applicable. The entire unit is disposable once removed. Once removed, keep incision clean and dry. If redness or drainage is noted, please call your surgeon. ONCE ALANNA IS REMOVED, FOLLOW THESE INSTRUCTIONS: DERMABOND Prine[place]- This is a mesh tape dressing that is covered with glue. It should remain in place until the incision is properly healed, usually 10-14 days. This dressing is designed to naturally slough off. You may trim the excess mesh tape as it peels off. Incision may be briefly wet in a shower. Dry immediately by blotting with a clean, dry towel. Do not bath or swim until instructed by your doctor. Do not scratch, rub, or pick at the dressing. Do not apply any topical ointments or lotions until dressing is completely removed and/or instructed by your doctor. There may be a small piece of suture material at one end of your incision. Do not pull or trim this. If it is bothersome or catching on clothing, you may cover it with a band-aid. FOLLOW UP VISIT: If appointment is not already scheduled: Please call [facility] to make a follow-up appointment for 2 weeks after your surgery at . Prescriptions: New celecoxib [Celebrex] 200 mg Capsule 200 mg PO BID 30 Days Qty: 60 RF: 0 aspirin [Ecotrin Low Strength] 81 mg Tablet,Delayed Release (Dr/Ec) 81 mg PO BID 30 Days Qty: 60 RF: 0 acetaminophen [Pain Reliever] 500 mg Tablet 1,000 mg PO Q8 14 Days Qty: 84 RF: 0 docusate sodium 100 mg Capsule 100 mg PO BID 10 Days Qty: 20 RF: 0 oxycodone 5 mg Tablet 5 - 10 mg PO Q6 PRN (Reason: pain) Qty: 30 RF: 0 Continued cyanocobalamin (vitamin B-12) [Vitamin B-12] 1,000 mcg Tablet 1,000 mcg PO QAM RF: 0 meclizine 12.5 mg Tablet 12.5 mg PO TID PRN (Reason: Vertigo) RF: 0 folic acid 1 mg Tablet 1 mg PO QAM RF: 0 Caltrate 600 + D 600 mg (1,500 mg)-800 unit Tablet,Chewable 2 tab PO QAM RF: 0 Discontinued raloxifene [Evista] 60 mg Tablet 60 mg PO QAM RF: 0 Humira 40 mg/0.8 mL Syringe Kit 1 dose subcut UD RF: 0 Stand-Alone Forms: [facility] Discharge Orders: Discharge Order (Routine); Ordered 07/17/18 Ordered By: [place] Admission Data Admit Date/Time: 07/15/18 09:55 Attending Provider: Fernando Grant Admit Provider: Fernando Grant Primary Care Provider: Cuate Vitale Service: Surgical Services Other Pending Studies at Discharge: No
[2018-07-17] MEDS: CYANOCOBALAMIN 500 MCG TABLET (VITAMIN B-12) PO SCH (08:27)
[2018-07-17] MEDS: FOLIC ACID 1 MG TAB PO SCH (08:27)
[2018-07-17] MEDS: CALCIUM 600MG + VIT D 400 IU TAB PO SCH (08:27)
[2018-07-17] MEDS: ASPIRIN 81 MG ECTAB PO SCH (08:27)
[2018-07-17] MEDS: DOCUSATE SODIUM 100 MG CAP PO SCH (08:27)
[2018-07-17] MEDS: CeleBREX 200 MG CAP PO SCH (08:28)
[2018-07-17] MEDS: OXYCODONE HCL IR 5 MG TAB (IMMEDIATE RELEASE) PO PRN ×2 (08:33→12:10)
== END 2018-07-17 12:24 | disposition home health service (06) | DRG 470 ==
LOC: ASU 06:32 → 3E 09:55
DX: Z79.810 Long term (current) use of selective estrogen receptor modulators (SERMs); Z79.899 Other long term (current) drug therapy; M17.11 Unilateral primary osteoarthritis, right knee